=== PATIENT | female | born 1955 | race Caucasian/White ===

== ENCOUNTER 2022-06-04 12:43 | Emergency (ER) | payer OTHER ==
[~2022-06-04] VITALS: Ht 157.5 cm; Wt 72.6 kg
[2022-06-04 12:57] VITALS: BP_SYST 157
[2022-06-04] MEDS ORDERED: IBUPROFEN 600 MG TABLET PO ONE (13:15)
--- NOTE | 2022-06-04 13:17 | NUR ---
PT PRESENTS TO ED SPOUSE BY BEDSIDE WITH C/O FALL, PT IS IN 10/10 PAIN, PT STATES BILATERALLY HER WRISTS AND KNEES ARE IN PAIN. PT IS CRYING. WILL CONT TO MONITOR WHEN PT GETS BACK FROM XRAY. PT WENT TO XRAY AT [id number]
--- NOTE | 2022-06-04 13:37 | NUR ---
PT IS BACK FROM XRAY
[2022-06-04] MEDS ORDERED: NAPR-688 PO (13:39)
[2022-06-04] MEDS ORDERED: TRAM50TA2 PO (13:39)
--- NOTE | 2022-06-04 13:41 | NUR ---
ACCORDING TO PT, PT TRIPPED ON GRATES BY THE SIDEWALK. PT STATES SHE FELL FRONT FOWARD WRIST PAIN RADIATES TO LEFT ELBOW. PT FELL ON KNEES ALSO. ED DR BY BEDSIDE. PT DESCRIBES THE PAIN ACHY. WILL MEDICATE ACCORDING TO DR ORDERS AND WILL CONTINUE TO MONITOR. ICE PACKS OFFERED.
[2022-06-04] MEDS ORDERED: MAG-AL HYDROX/SIMETH 30 ML UDC PO ONE (13:45)
[2022-06-04 14:04] VITALS: BP_SYST 155
--- NOTE | 2022-06-04 14:05 | NUR ---
Patient given written and verbal discharge instructions and verbalizes understanding. ER MD discussed with patient the results and treatment provided. Patient in stable condition. ID arm band removed. Rx of NAPROXEN AND TRAMADOL given. Patient educated on pain management and to follow up with PMD. Pain Scale 10. Opportunity for questions provided and answered. Medication side effect fact sheet provided. PT WAS GIVEN AND PLACED 4 ICE PACKS ON ALL 4 EXTREMETIES.
== END 2022-06-04 14:05 | disposition home or self-care (01) ==
LOC: SED 12:43
DX: S60.212A Contusion of left wrist, initial encounter (principal); S60.211A Contusion of right wrist, initial encounter; S80.02XA Contusion of left knee, initial encounter; S80.01XA Contusion of right knee, initial encounter; E11.9 Type 2 diabetes mellitus without complications; I10 Essential (primary) hypertension; W01.0XXA Fall on same level from slipping, tripping and stumbling without subsequent striking against object, initial encounter; Y93.89 Activity, other specified; Y92.89 Other specified places as the place of occurrence of the external cause; Y99.8 Other external cause status
CPT/HCPCS: 99284